=== PATIENT | female | born 1975 | race Caucasian/White ===

== ENCOUNTER 2018-06-23 06:55 | Emergency (ER) | payer SELFPAY ==
[2018-06-23] MEDS ORDERED: KETOROLAC 30 MG/ML INJ ONE (07:41)
[2018-06-23] MEDS ORDERED: CEFTRIAXONE/SWI 1gm 1 GM/10 ML SYR ONE (07:41)
[2018-06-23] MEDS ORDERED: NA CHLORIDE 0.9% 1,000 ML ONE (07:41)
[2018-06-23 07:56] LABS: Absolute Monocytes 0.6 K/uL (0.1-1.3); Absolute Neutrophil 7.9 K/uL (1.8-8.0); Basophils % 0.5 % (0-1.3); Eosinophils % 4.2 % (0-4.4); Hematocrit 41.1 % (36.0-45.0); Lymphocytes % 18.2 % (15.3-44.8); MCH 31.7 pg (27.0-35.0); MCV 89.7 fL (80-100); MPV 8.2 fL (7.6-11.3); Monocytes % 5.6 % (3.3-12.3); RBC Red Blood Cell Count 4.58 M/uL (3.86-4.86)
[2018-06-23 08:01] LABS: Urine Bacteria 20-50 /HPF (<20); Urine Culture Reflex Order REFLEXED
[2018-06-23 08:10] LABS: Urine Blood 2+ (NEG); Urine Glucose NEGATIVE (NEG); Urine Protein NEGATIVE (NEG)
[2018-06-23 08:14] LABS: Potassium 3.9 mmol/L (3.5-5.1)
--- NOTE | 2018-06-23 08:51 | EDPHYS ---
Physician Documentation [facility] Name: Tash Santos Age: 42 yrs Sex: Female : 1975 Arrival Date: 06/23/2018 Time: 07:00 Bed 13 Private MD: ED Physician Otoniel Jama HPI: 06/23 07:35 This 42 yrs old Female presents to ER via Ambulatory with complaints of jr8 Urinary Problem. 07:35 The patient presents with urinary symptoms, dysuria, frequency, urgency. Onset: The jr8 symptoms/episode began/occurred acutely, 1 week(s) ago, and became worse and became persistent. Modifying factors: The symptoms are alleviated by nothing, the symptoms are aggravated by urinating. Associated signs and symptoms: Pertinent positives: flank and back pain. Severity of symptoms: At their worst the symptoms were moderate, in the emergency department the symptoms are unchanged. The patient has not experienced similar symptoms in the past. The patient has not recently seen a physician. 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 - Social history:: Smoking status: Patient uses tobacco products, smokes one-half pack cigarettes per day. - Ebola Screening: : No symptoms or risks identified at this time. ROS: 07:35 Eyes: Negative for injury, pain, redness, and discharge, ENT: Negative for injury, jr8 pain, and discharge, Neck: Negative for injury, pain, and swelling, Cardiovascular: Negative for chest pain, palpitations, and edema, Respiratory: Negative for shortness of breath, cough, wheezing, and pleuritic chest pain, Abdomen/GI: Negative for abdominal pain, nausea, vomiting, diarrhea, and constipation, MS/Extremity: Negative for injury and deformity, Skin: Negative for injury, rash, and discoloration, Neuro: Negative for headache, weakness, numbness, tingling, and seizure. 07:35 Back: Positive for flank pain, on the right. 07:35 : Positive for urinary symptoms, flank pain, hematuria, burning with urination, Negative for vaginal bleeding, vaginal discharge. Exam: 07:35 Eyes: Pupils equal round and reactive to light, extra-ocular motions intact. Lids and jr8 lashes normal. Conjunctiva and sclera are non-icteric and not injected. Cornea within normal limits. Periorbital areas with no swelling, redness, or edema. ENT: Nares patent. No nasal discharge, no septal abnormalities noted. Tympanic membranes are normal and external auditory canals are clear. Oropharynx with no redness, swelling, or masses, exudates, or evidence of obstruction, uvula midline. Mucous membranes moist. Neck: Trachea midline, no thyromegaly or masses palpated, and no cervical lymphadenopathy. Supple, full range of motion without nuchal rigidity, or vertebral point tenderness. No Meningismus. Cardiovascular: Regular rate and rhythm with a normal S1 and S2. No gallops, murmurs, or rubs. Normal PMI, no JVD. No pulse deficits. Respiratory: Lungs have equal breath sounds bilaterally, clear to auscultation and percussion. No rales, rhonchi or wheezes noted. No increased work of breathing, no retractions or nasal flaring. Abdomen/GI: Soft, non-tender, with normal bowel sounds. No distension or tympany. No guarding or rebound. No evidence of tenderness throughout. Skin: Warm, dry with normal turgor. Normal color with no rashes, no lesions, and no evidence of cellulitis. MS/ Extremity: Pulses equal, no cyanosis. Neurovascular intact. Full, normal range of motion. Neuro: Awake and alert, GCS 15, oriented to person, place, time, and situation. Cranial nerves II-XII grossly intact. Motor strength 5/5 in all extremities. Sensory grossly intact. Cerebellar exam normal. Normal gait. 07:35 Back: pain, that is moderate, of the right flank, ROM is normal, normal spinal alignment noted, CVA tenderness, that is moderate, is noted on the right, vertebral tenderness, is not appreciated, muscle spasm, is not present. Vital Signs: 07:10 BP 196 / 106; Pulse 84; Resp 16 S; Temp 98.4(O); Pulse Ox 100% on R/A; Pain 10/10; aa5 07:38 BP 160 / 92; Pulse 73; Resp 17; Pulse Ox 98% on R/A; em 08:18 BP 158 / 85; Pulse 64; Resp 16; Pulse Ox 99% on R/A; Pain 2/10; em 08:50 BP 152 / 79; Pulse 68; Resp 16; Pulse Ox 98% on R/A; mh5 MDM: 07:15 Patient medically screened. jr8 07:35 Special discussion: I have referred the patient to see his PCP for further evaluation jr8 of high blood pressure. 08:49 Differential diagnosis: appendicitis, kidney stone, nonspecific abdominal pain, pelvic jr8 inflammatory disease, urinary tract infection, pyelonephritis, diverticulitis, colitis. 08:51 Data reviewed: vital signs, nurses notes, lab test result(s), and as a result, I will jr8 discharge patient. Data interpreted: Pulse oximetry: on room air is 98 %. Interpretation: normal. Counseling: I had a detailed discussion with the patient and/or guardian regarding: the historical points, exam findings, and any diagnostic results supporting the discharge/admit diagnosis, lab results, the need for outpatient follow up, a family practitioner, to return to the emergency department if symptoms worsen or persist or if there are any questions or concerns that arise at home. Response to treatment: the patient's symptoms have markedly improved after treatment, patient is well hydrated. 06/23 07:16 Order name: Urine Microscopic Only; Complete Time: 08:49 jr8 06/23 07:23 Order name: Urine Dipstick--Ancillary (enter results); Complete Time: 08:49 bd 06/23 07:23 Order name: Urine --Ancillary (enter results); Complete Time: 08:49 bd 06/23 07:30 Order name: CBC with Diff; Complete Time: 08:49 jr8 06/23 07:30 Order name: Basic Metabolic Panel; Complete Time: 08:49 jr8 06/23 08:02 Order name: Urine Culture EDMS 06/23 07:16 Order name: Urine Test (obtain specimen); Complete Time: 07:18 jr8 06/23 07:16 Order name: Urine Dipstick-Ancillary (obtain specimen); Complete Time: 07:18 jr8 06/23 07:30 Order name: IV; Complete Time: 07:43 jr8 Administered Medications: 07:43 Drug: NS 0.9% 1000 ml Route: IV; Rate: 1000 ml; Site: right antecubital; em 08:45 Follow up: IV Status: Completed infusion; IV Intake: 1000ml em 07:44 Drug: TORadol 30 mg Route: IVP; Site: right antecubital; la1 08:17 Follow up: Response: No adverse reaction; Pain is decreased em 07:45 Drug: Rocephin 1 grams Route: IV; Rate: calculated rate; Site: right antecubital; la1 08:00 Follow up: Response: No adverse reaction; IV Status: Completed infusion; IV Intake: 10mlem Disposition: 06/23/18 08:50 Discharged to Home. Impression: Acute tubulo-interstitial nephritis. - Condition is Stable. - Discharge Instructions: Pyelonephritis, Adult. - Prescriptions for Levaquin 500 mg Oral Tablet - take 1 tablet by ORAL route once daily for 7 days; 7 tablet. Zofran 4 mg Oral Tablet - take 1 tablet by ORAL route every 12 hours As needed; 20 tablet. Pyridium 200 mg Oral Tablet - take 1 tablet by ORAL route every 8 hours for 3 days; 9 tablet. Tramadol 50 mg Oral Tablet - take 1 tablet by ORAL route every 8 hours as needed; 12 tablet. - Medication Reconciliation Form, Thank You Letter, Antibiotic Education, Prescription Opioid Use form. - Follow up: Private Physician; When: 2 - 3 days; Reason: Recheck today's complaints, Continuance of care, Re-evaluation by your physician. - Problem is new. - Symptoms have improved. Addendum: 06/24/2018 15:14 Co-signature as Attending Physician, Otoniel Jama MD. g s Signatures: Dispatcher [employer] [facility] Linwood Ball, BEAMER OPERATOR BEAMER OPERATOR em Jessica Reyez, RN RN aa5 Jake Carmona PA PA jr8 Austin Oakley RN RN la1 Otoniel Jama MD MD gs Corrections: (The following items were deleted from the chart) 06/23 09:05 08:50 06/23/2018 08:50 Discharged to Home. Impression: Acute tubulo-interstitial em nephritis. Condition is Stable. Forms are Medication Reconciliation Form, Thank You Letter, Antibiotic Education, Prescription Opioid Use. Follow up: Private Physician; When: 2 - 3 days; Reason: Recheck today's complaints, Continuance of care, Re-evaluation by your physician. Problem is new. Symptoms have improved. jr8
--- NOTE | 2018-06-23 08:51 | ER ---
Nurse's Notes [facility] Name: Tash Santos Age: 42 yrs Sex: Female : 1975 Arrival Date: 06/23/2018 Time: 07:00 Bed 13 Private MD: Diagnosis: Acute tubulo-interstitial nephritis Presentation: 06/23 07:05 Presenting complaint: Patient states: burning with urination x 2 weeks ago. Pt also c/o aa5 lower abd pain and lower back pain radiating to right leg since last night. 07:05 Transition of care: patient was not received from another setting of care. Onset of aa5 symptoms was May 2018. Risk Assessment: Do you want to hurt yourself or someone else? Patient reports no desire to harm self or others. Initial Sepsis Screen: Does the patient meet any 2 criteria? No. Patient's initial sepsis screen is negative. Does the patient have a suspected source of infection? No. Patient's initial sepsis screen is negative. Care prior to arrival: None. 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 - Social history:: Smoking status: Patient uses tobacco products, smokes one-half pack cigarettes per day. - Ebola Screening: : No symptoms or risks identified at this time. Screenin:17 Abuse screen: Denies threats or abuse. Nutritional screening: No deficits noted. em Tuberculosis screening: No symptoms or risk factors identified. Fall Risk None identified. Assessment: 07:23 General: Appears in no apparent distress. uncomfortable, Behavior is calm, cooperative, em Denies fever. Pain: Complains of pain in pelvis Pain radiates to lumbar area and right leg. Neuro: Level of Consciousness is awake, alert, obeys commands, Oriented to person, place, time, situation, Moves all extremities. Gait is steady, Speech is normal, Facial symmetry appears normal, Intact Denies blurred vision dizziness, headache. Cardiovascular: Denies chest pain, shortness of breath, Capillary refill < 3 seconds Patient's skin is warm and dry. Respiratory: Airway is patent Respiratory effort is even, unlabored, Respiratory pattern is regular, symmetrical. GI: Abdomen is flat. : Urine is cloudy, Reports burning with urination, Denies discharge. EENT: Oral mucosa is moist. Derm: Skin is intact, Skin is pink, warm \T\ dry. Musculoskeletal: Range of motion: intact in all extremities. 07:23 Reassessment: I agree with assessment completed by Linwood Ball LVN . aa5 08:18 Reassessment: Patient appears in no apparent distress at this time. Patient and/or em family updated on plan of care and expected duration. Pain level reassessed. Patient is alert, oriented x 3, equal unlabored respirations, skin warm/dry/pink. rates pain 2/10 Patient states feeling better. 09:05 Reassessment: Patient appears in no apparent distress at this time. Patient and/or em family updated on plan of care and expected duration. Pain level reassessed. Patient is alert, oriented x 3, equal unlabored respirations, skin warm/dry/pink. Patient states feeling better. Patient states symptoms have improved. Vital Signs: 07:10 BP 196 / 106; Pulse 84; Resp 16 S; Temp 98.4(O); Pulse Ox 100% on R/A; Pain 10/10; aa5 07:38 BP 160 / 92; Pulse 73; Resp 17; Pulse Ox 98% on R/A; em 08:18 BP 158 / 85; Pulse 64; Resp 16; Pulse Ox 99% on R/A; Pain 2/10; em 08:50 BP 152 / 79; Pulse 68; Resp 16; Pulse Ox 98% on R/A; mh5 ED Course: 07:00 Patient arrived in ED. ag3 07:05 Arm band placed on Patient placed in an exam room, on a stretcher. aa5 07:09 Triage completed. aa5 07:10 Linwood Ball LVN is Primary Nurse. em 07:15 Jake Carmona PA is PHCP. jr8 07:15 Otoniel Jama MD is Attending Physician. jr8 07:17 Patient has correct armband on for positive identification. Bed in low position. Call em light in reach. 07:17 No provider procedures requiring assistance completed. em 07:19 Urine collected: clean catch specimen, cloudy. em 07:43 Basic Metabolic Panel Sent. 5 07:43 CBC with Diff Sent. 5 07:44 Warm blanket given. Pulse ox on. NIBP on. 5 07:44 Initial lab(s) drawn, by me, sent to lab. Inserted saline lock: 20 gauge in right 5 antecubital area, using aseptic technique. Blood collected. 09:03 IV discontinued, intact, bleeding controlled, No redness/swelling at site. Pressure em dressing applied. Administered Medications: 07:43 Drug: NS 0.9% 1000 ml Route: IV; Rate: 1000 ml; Site: right antecubital; em 08:45 Follow up: IV Status: Completed infusion; IV Intake: 1000ml em 07:44 Drug: TORadol 30 mg Route: IVP; Site: right antecubital; wa1 08:17 Follow up: Response: No adverse reaction; Pain is decreased em 07:45 Drug: Rocephin 1 grams Route: IV; Rate: calculated rate; Site: right antecubital; la1 08:00 Follow up: Response: No adverse reaction; IV Status: Completed infusion; IV Intake: 10mlem Intake: 08:00 IV: 10ml; Total: 10ml. em 08:45 IV: 1000ml; Total: 1010ml. em Outcome: 08:50 Discharge ordered by MD. mejia 09:03 Discharged to home ambulatory. em 09:03 Condition: good 09:03 Discharge instructions given to patient, Instructed on discharge instructions, follow up and referral plans. medication usage, Demonstrated understanding of instructions, follow-up care, medications, Prescriptions given X 4. 09:05 Patient left the ED. em Addendum: 06/26/2018 07:12 Addendum: Culture Results: Positive urine culture. No further action required. Bacteria i w sensitive to prescribed antibiotic. Signatures: Linwood Ball, NUCLEAR MEDICINE CHIEF TECHNOLOGIST NUCLEAR MEDICINE CHIEF TECHNOLOGIST em Radha Segal RN Jessica Figueroa RN RN [email or web address] Jake Carmona PA PA jr8 Austin Oakley RN RN la1 Martinez, Maria 5 Erin Haines 3 Corrections: (The following items were deleted from the chart) 06/23 16:48 07:23 Pain: Complains of pain in pelvis Pain radiates to lumbar area em aa5
== END 2018-06-23 09:05 | disposition home or self-care (01) ==
LOC: ER 06:55
DX: N10 Acute pyelonephritis (principal); F17.210 Nicotine dependence, cigarettes, uncomplicated
CPT/HCPCS: 36415; 80048; 81003; 81015; 81025; 85025; 87077; 87086; 87088; 87186; 96361; 96374; 96375; 99284; J0696; J7030